=== PATIENT | female | born 1935 | race Caucasian/White ===

== ENCOUNTER 2017-11-25 17:53 | Inpatient (IN) | payer OTHER ==
[~2017-11-25] VITALS: Ht 152.4 cm; Wt 77.7 kg
[2017-11-25] VITALS (9 sets, daily range): BP systolic 97–218; BP diastolic 46–88
[2017-11-25 18:54] LABS: BASOPHIL % 1.6 % (0-2); PLATELET COUNT 346 x10^3mcL (130-400); RED CELL DISTRIBUTION WIDTH 13.8 % (11.5-14.5)
[2017-11-25 19:05] LABS: CALCIUM 9.1 mg/dL (8.5-10.1); CARBON DIOXIDE 27.9 mmol/L (21-32); CHLORIDE SERUM 101 mmol/L (98-107); CREATININE SERUM 0.7 mg/dL (0.6-1.0); GLUCOSE SERUM 90 mg/dL (74-106); POTASSIUM SERUM 3.7 mmol/L (3.5-5.1); SODIUM SERUM 139 mmol/L (136-145)
[2017-11-25 19:09] LABS: ALKALINE PHOSPHATASE 87 U/L (46-116); ALT/SGPT 19 U/L (14-59); AST/SGOT 17 U/L (15-37); BILIRUBIN TOTAL 0.3 mg/dL (0.20-1.00); CHOLESTEROL 195 mg/dL (<200)
[2017-11-25] MEDS ORDERED: HCTZ/TRIAMTEREN1 CA1 PO (19:31)
[2017-11-25] MEDS ORDERED: ALTACE10 MG PO (19:32)
[2017-11-25] MEDS ORDERED: [UNRECOGNIZED DRUG - CODE] PO (19:32)
[2017-11-25] MEDS ORDERED: CLONIDINE HYDR0.3 M1 PO (19:32)
[2017-11-25 20:18] LABS: MAGNESIUM 2.3 mg/dL (1.8-2.4); PHOSPHOROUS 2.9 mg/dL (2.5-4.9)
[2017-11-25 20:21] LABS: CHOLESTEROL/HDL RATIO 2.2
[2017-11-25 20:26] LABS: FREE T4 1.23 ng/dL (0.76-1.46); T4(THYROXINE) 8.6 ug/dL (4.7-13.3)
[2017-11-25 20:27] LABS: T3 TOTAL 1.04 ng/mL
[2017-11-26] VITALS (9 sets, daily range): BP systolic 113–179; BP diastolic 54–74; Ht 152.4 cm; Wt 77.7 kg
[2017-11-26 06:03] LABS: BASOPHIL % 0.5 % (0-2); PLATELET COUNT 303 x10^3mcL (130-400); RED CELL DISTRIBUTION WIDTH 13.8 % (11.5-14.5)
[2017-11-26 06:31] LABS: CALCIUM 8.3 mg/dL (8.5-10.1); CARBON DIOXIDE 28.1 mmol/L (21-32); CHLORIDE SERUM 106 mmol/L (98-107); CREATININE SERUM 0.7 mg/dL (0.6-1.0); GLUCOSE SERUM 116 mg/dL (74-106); POTASSIUM SERUM 3.5 mmol/L (3.5-5.1); SODIUM SERUM 143 mmol/L (136-145)
[2017-11-27] VITALS (9 sets, daily range): BP systolic 117–190; BP diastolic 60–91
[2017-11-27 05:59] LABS: microscopic required? NO
[2017-11-27 06:06] LABS: urine erythrocyte NEGATIVE (NEGATIVE)
[2017-11-27 06:53] LABS: CALCIUM 9.4 mg/dL (8.5-10.1); CHLORIDE SERUM 105 mmol/L (98-107); CREATININE SERUM 0.8 mg/dL (0.6-1.0); GLUCOSE SERUM 109 mg/dL (74-106); SODIUM SERUM 143 mmol/L (136-145)
[2017-11-27 06:56] LABS: BASOPHIL % 0.6 % (0-2); PLATELET COUNT 306 x10^3mcL (130-400); RED CELL DISTRIBUTION WIDTH 13.8 % (11.5-14.5)
[2017-11-27 20:31] LABS: AMPHETAMINE QUAL UR NONE DETECTED (NEG <=1000)
[2017-11-28 06:02] VITALS: BP 143/62
[2017-11-28 06:07] LABS: BASOPHIL % 0.5 % (0-2); PLATELET COUNT 324 x10^3mcL (130-400); RED CELL DISTRIBUTION WIDTH 13.9 % (11.5-14.5)
[2017-11-28 06:20] LABS: CALCIUM 9.9 mg/dL (8.5-10.1); CARBON DIOXIDE 27.1 mmol/L (21-32); CHLORIDE SERUM 102 mmol/L (98-107); CREATININE SERUM 0.7 mg/dL (0.6-1.0); GLUCOSE SERUM 116 mg/dL (74-106); POTASSIUM SERUM 4.4 mmol/L (3.5-5.1); SODIUM SERUM 139 mmol/L (136-145)
[2017-11-28] MEDS ORDERED: NOR10 PO (10:20)
[2017-11-28 11:38] VITALS: BP 117/61
[2017-11-28 12:23] VITALS: BP 117/61
[2017-11-28 17:05] VITALS: BP 116/71
== END 2017-11-28 17:17 | disposition home or self-care (01) | DRG 304 ==
LOC: ED 17:53 → DU 19:16
PROVIDERS: Family Medicine; Specialist; Student in an Organized Health Care Education/Training Program
DX: I16.0 Hypertensive urgency (principal); N17.0 Acute kidney failure with tubular necrosis; I10 Essential (primary) hypertension; E11.65 Type 2 diabetes mellitus with hyperglycemia; E11.51 Type 2 diabetes mellitus with diabetic peripheral angiopathy without gangrene; E83.51 Hypocalcemia; D50.9 Iron deficiency anemia, unspecified; M81.0 Age-related osteoporosis without current pathological fracture; Z68.33 Body mass index [BMI] 33.0-33.9, adult; Z86.73 Personal history of transient ischemic attack (TIA), and cerebral infarction without residual deficits
CPT/HCPCS: 82962; 83880; 84439; G0480; J0360; J1940; J3490; J7030; Q0092

== ENCOUNTER 2019-04-30 05:56 | Emergency (ER) | payer OTHER ==
[~2019-04-30] VITALS: Ht 149.9 cm; Wt 85.3 kg
[~2019-04-30 05:56] MED LIST: ALTACE10 MG PO; CLONIDINE HYDR0.3 M1 PO; HCTZ/TRIAMTEREN1 CA1 PO; NOR10 PO; [UNRECOGNIZED DRUG - CODE] PO
[2019-04-30 05:58] VITALS: Ht 149.9 cm; Wt 85.3 kg
[2019-04-30 06:26] LABS: BASOPHIL % 0.5 % (0-2); PLATELET COUNT 307 x10^3mcL (130-400); RED CELL DISTRIBUTION WIDTH 13.6 % (11.5-14.5)
[2019-04-30 06:47] LABS: CALCIUM 9.9 mg/dL (8.5-10.1); CARBON DIOXIDE 31.1 mmol/L (21-32); CHLORIDE SERUM 103 mmol/L (98-107); CREATININE SERUM 0.8 mg/dL (0.6-1.0); GLUCOSE SERUM 112 mg/dL (74-106); POTASSIUM SERUM 3.7 mmol/L (3.5-5.1); SODIUM SERUM 141 mmol/L (136-145)
[2019-04-30 06:51] LABS: ALBUMIN 3.8 g/dL (3.4-5.0); ALKALINE PHOSPHATASE 94 U/L (46-116); ALT/SGPT 18 U/L (14-59); AST/SGOT 12 U/L (15-37); BILIRUBIN TOTAL 0.44 mg/dL (0.20-1.00); TOTAL PROTEIN, SERUM 7.9 g/dL (6.4-8.2)
[2019-04-30 08:42] VITALS: BP 159/78
== END 2019-04-30 08:42 | disposition home or self-care (01) ==
LOC: ED 05:56
PROVIDERS: Emergency Medicine
DX: R07.89 Other chest pain (principal); R05 Cough; J45.909 Unspecified asthma, uncomplicated; I10 Essential (primary) hypertension
CPT/HCPCS: J1885; Q0092